=== PATIENT | male | born 1950 | race Caucasian/White ===

== ENCOUNTER → 2021-11-18 | Outpatient (CLI) | payer OTHER ==
--- NOTE | 2021-11-18 13:50 | 2DMMODE ---
[facility] [place] [address] 2 D/M-MODE ECHOCARDIOGRAM Name: LUCIO MAZARIEGOS Room #: REG CHRISTIAN M.R.#: [id number] Admission: 11/18/21 Attend Phys: Physician not on staff Discharge: Date of : 54 Report #: [id number] THIS REPORT FOR: cc: Kevin Reynoso MD, Matthew B. MD Park, Jin S. MD ~ APPROVED REPORT Study performed: 11/18/2021 13:06:58 EXAM: Comprehensive 2D, Doppler, and color-flow Echocardiogram Patient Location: Out-Patient Status: routine BSA: 2.20 HR: 59 bpm BP: 120/80 mmHg Rhythm: NSR Other Information Study Quality: Good Indications Ascending aorta dilatation. 2D Dimensions RVDd: 40.95 mm IVSd: 13.06 (7-11mm) LVOT Diam: 23.13 (18-24mm) LVDd: 50.49 mm PWd: 12.62 (7-11mm) Ascending Ao: 44.06 (22-36mm) LVDs: 35.95 (25-40mm) Left Atrium: 41.79 (27-40mm) Aortic Root: 35.69 mm Volumes Left Atrial Volume (Systole) Single Plane 4CH: 74.91 mL Single Plane 2CH: 85.30 mL LA ESV Index: 38.00 mL/m2 Aortic Valve AoV Peak Miguelito.: 1.79 m/s AO Peak Gr.: 12.86 mmHg LVOT Max P.31 mmHg LVOT Max V: 1.15 m/s FELICIA Vmax: 2.70 cm2 [facility] [address] [place] [address] 2 D/M-MODE ECHOCARDIOGRAM Name: LUCIO MAZARIEGOS [id number] Admission: 11/18/21 Attend Phys: Physician not on s Discharge: Date of : 54 Report #: [id number] Mitral Valve E/A Ratio: 0.8 MV Decel. Time: 236.05 ms MV E Max Miguelito.: 0.61 m/s MV A Miguelito.: 0.75 m/s MV PHT: 68.46 ms IVRT: 92.27 ms Pulmonary Valve PV Peak Miguelito.: 1.27 m/s PV Peak Gr.: 6.42 mmHg Pulmonary Vein P Vein S: 0.56 m/s P Vein A: 0.36 m/s P Vein D: 0.45 m/s P Vein A Dur.: 124.6 msec P Vein S/D Ratio: 1.24 Tricuspid Valve TR Peak Miguelito.: 1.77 m/s RAP Estimate: 5.00 mmHg TR Peak Gr.: 12.49 mmHg PA Pressure: 17.00 mmHg Left Ventricle The left ventricle is normal size. There is normal LV segmental wall motion. Mild concentric left ventricular hypertrophy. The overall left ventricular systolic function appears normal. LVEF is 60-65%. Mild diastolic dysfunction is present (impaired relaxation pattern). Right Ventricle The right ventricle is normal size. The right ventricular systolic function is normal. Atria Left atrium is mildly dilated. The right atrium size is normal. Aortic Valve The aortic valve is normal in structure. Trace aortic regurgitation. There is no aortic valvular stenosis. Mitral Valve The mitral valve is normal in structure. Trace mitral regurgitation. No evidence of mitral valve stenosis. Tricuspid Valve [facility] [address] [place] [address] 2 D/M-MODE ECHOCARDIOGRAM Name: LUCIO MAZARIEGOS Room #: REG CHUCK Cervantes#: [id number] Admission: 11/18/21 Attend Phys: Physician not on s Discharge: Date of : 54 Report #: [id number] The tricuspid valve is normal in structure. Trace tricuspid regurgitation. Estimated PAP is 17mmHg. Pulmonic Valve The pulmonary valve is normal in structure. Trace pulmonic regurgitation. Great Vessels The aortic root is normal in size. Ascending aorta is dialted. Measuring 4.4cm. IVC is normal in size and collapses >50% with inspiration. Pericardium There is no pericardial effusion. <Conclusion> The left ventricle is normal size. Mild concentric left ventricular hypertrophy. The overall left ventricular systolic function appears normal. Mild diastolic dysfunction is present (impaired relaxation pattern). The right ventricle is normal size. Left atrium is mildly dilated. The aortic valve is normal in structure. Trace mitral regurgitation. Trace tricuspid regurgitation. Estimated PAP is 17mmHg. Ascending aorta is dialted. Measuring 4.4cm. <ELECTRONICALLY SIGNED> By: Nghia Eden MD 11/18/21 1350 1350 1350 Nghia Eden MD /INF
== END ==
LOC: CV 12:56
DX: I77.810 Thoracic aortic ectasia (principal)